=== PATIENT | female | born 1935 | race Caucasian/White ===

== ENCOUNTER → 2017-05-24 | Day surgery (SDC) | payer MEDICARE ==
--- NOTE | 2017-05-21 12:58 | Diagnostic Imaging Report ---
PROCEDURE: Frontal and lateral views of the chest. COMPARISON: 09/22/15 INDICATIONS: PRE-OP FINDINGS: Lines/tubes: None. Lungs: The lungs are well inflated and clear. There is no evidence of pneumonia or pulmonary edema. Pleura: There is no pleural effusion or pneumothorax. Heart and mediastinum: The heart and the mediastinum are normal. Bones: No acute bony abnormality. IMPRESSION: 1. No acute cardiopulmonary disease. Dictated by: Dylon Coon M.D. on 05/21/2017 at 12:59 Electronically approved by: Dylon Coon M.D. on 05/21/2017 at 12:59
[~2017-05-24] MED LIST: ASPIRIN81 MG PO; BUPIVACAINE HCL 0.5% 10ML MPF VIAL INJ ONE; CO Q-10 PO; DESFLURANE 240 ML BTL INH ONE; DEXAMETHASONE SOD PHOS INJ 4 MG/ML VIAL ONE; DILTIAZEM ER120 MG PO; FENTANYL CITRATE/PF 100MCG/2 ML INJ ONE; KETOROLAC TROMETHAMINE 30 MG/ML VIAL ONE; LEVOTHYROXINE75 MCG PO; LIDOCAINE HCL 2% LOCAL INJ 5 ML SDV VIAL INJ ONE; MULTI-VITAMIN1 EACH PO; NEOSTIGMINE 1 MG/ML 10ML VIAL ONE; ONDANSETRON HCL INJ 2 MG/ML VIAL ONE; PROPOFOL IV EMULSION 10 MG/ML 20 ML VIAL ONE
--- OUTSIDE RECORDS SUMMARY | 2017-05-24 05:32 | XMS REPORT ---
Author Author [facility] Address Unknown Phone Unavailable Care Team Providers Care Clinical Unit Educator Name Role Phone MAGDALENA THAPA Unavailable Unavailable Problems This patient has no known problems. Allergies, Adverse Reactions, Alerts This patient has no known allergies or adverse reactions. Medications This patient has no known medications. Results Test Description Test Time Test Comments Text Results Atomic Results Result Comments CHEST 2 VIEWS [place] [address] Patient Name: RAJIV COLE MR #: [id number] : 1935 Age/Sex: 81/F Req # : [id number] [facility] Physician: Ordered by: SHLOMO LAI MD Report #: [id number] Location: OR Room/Bed: Procedure: 0410- 0054 DX/CHEST 2 VIEWS Exam Date: 05/21/17 Exam Time : 1230 REPORT STATUS: Signed PROCEDURE: Frontal and lateral views of the chest. COMPARISON: 09/22/15 INDICATIONS: PRE-OP FINDINGS: Lines/tubes: None. Lungs: The lungs are well inflated and clear. There is no evidence of pneumonia or pulmonary edema. Pleura: There is no pleural effusion or pneumothorax. Heart and mediastinum: The heart and the mediastinum are normal. Bones: No acute bony abnormality. IMPRESSION: 1. No acute cardiopulmonary disease. Dictated by : Dylon Benitez M.D. on 05/21/2017 at 12:59 Electronically approved by: Dylon Benitez M.D. on 05/21/2017 at 12:59 Dictated By: DYLON BENITEZ MD 125 Transcribed By: SHAN on 05/21/171258 COPY TO: SHLOMO LAI MD
[2017-05-24 06:09] LABS: BASOPHILS # (AUTO) 0.1 (0.0-0.1); BASOPHILS % 0.8 % (0.0-1.0); EOSINOPHILS # (AUTO) 0.2 (0.0-0.4); EOSINOPHILS % 2.5 % (0.0-6.0); HEMATOCRIT 42.3 % (34.2-44.1); HEMOGLOBIN 14.3 g/dL (12.0-16.0); LYMPHOCYTES % 32.5 % (18.0-39.1); MEAN CORPUSCULAR HEMOGLOBIN 30.2 pg (28-32); MEAN CORPUSCULAR HGB CONC 33.8 g/dL (31-35); MEAN CORPUSCULAR VOLUME 89.2 fL (81-99); MONOCYTES # (AUTO) 0.7 (0.2-0.8); MONOCYTES % 11.1 % (4.4-11.3); NEUTROPHILS # (AUTO) 3.2 (2.1-6.9); NEUTROPHILS % 52.9 % (38.7-80.0); PLATELET COUNT 224 x10e3/uL (140-360); RED BLOOD COUNT 4.74 x10e6/uL (3.6-5.1); RED CELL DISTRIBUTION WIDTH 13.5 % (11.7-14.4)
[2017-05-24] MEDS: CEFAZOLIN SOD 2 GM/D5W 50ML 50 ML IV ONE (06:15)
--- NOTE | 2017-05-24 13:41 | Operative Report ---
DATE OF PROCEDURE: May 24, 2017 PREOPERATIVE DIAGNOSIS: Painful hardware of the right foot. POSTOPERATIVE DIAGNOSIS: Painful hardware of the right foot. TITLE OF OPERATION: Removal of hardware, right foot, with application of human tissue allograft. PROCEDURE IN DETAIL: The patient was taken to the operating room in a mildly sedated state and placed upon the operating table in the supine position. Following induction of general anesthetic, the right lower extremity was elevated to 60 degrees to exsanguinate before inflating the pneumatic thigh tourniquet to 350 mmHg to create hemostasis. The right lower extremity was placed on the operating table prior to performing the following procedure: Procedure #1: Removal of hardware, right foot. There was a very large, inflamed, ulcerated area overlying the hardware on the first metatarsophalangeal joint of the right foot. The incision was deepened and made through the skin and down to hardware on the right foot. The area was excised and debrided, and the underlying tissue was removed. Utilizing a K-wire into the cannula of the screw, the screw was extracted utilizing the appropriate screwdriver. This having been accomplished, the area was irrigated with copious amounts of sterile saline solution. Human tissue allograft was used to facilitate healing. Skin closure was 4-0 nylon. The appropriate mildly compressive dressings were applied. Release of the pneumatic thigh tourniquet showed a normal hyperemic flush to all digits of the right foot. Patient left the operating room with vital signs stable and in apparent satisfactory condition, having tolerated both anesthetic and procedure very well. Job#: [id number]
== END | disposition home or self-care (01) ==
LOC: OR 05:29
PROVIDERS: ATTEND Podiatrist Foot Surgery
DX: T84.84XA Pain due to internal orthopedic prosthetic devices, implants and grafts, initial encounter (principal); Y83.8 Other surgical procedures as the cause of abnormal reaction of the patient, or of later complication, without mention of misadventure at the time of the procedure; L97.511 Non-pressure chronic ulcer of other part of right foot limited to breakdown of skin; I10 Essential (primary) hypertension; E03.9 Hypothyroidism, unspecified; Z01.810 Encounter for preprocedural cardiovascular examination; Z01.818 Encounter for other preprocedural examination; Z79.82 Long term (current) use of aspirin
CPT/HCPCS: 36415; 71046; 76000; 85025; 93005; J1100; J1885; J2001; J2405; J2710